=== PATIENT | female | born 1985 | race Caucasian/White ===

== ENCOUNTER 2017-11-07 22:26 | Emergency (ER) | END 2017-11-08 03:10 | disposition home or self-care (01) ==

== ENCOUNTER 2018-04-19 10:16 | Emergency (ER) | payer BC ==
[~2018-04-19] VITALS: Ht 170.2 cm; Wt 76.4 kg
[~2018-04-19 10:16] MED LIST: ACET1TAB40 PO; HYDR-4011 PO; NAPR-985 PO; PANT40TA3 PO
[2018-04-19 10:39] VITALS: Ht 170.2 cm; Wt 76.4 kg
--- NOTE | 2018-04-19 14:11 | ERD ---
ER Documentation Chief Complaint Chief Complaint haley robledo started yesterday HPI 32-year-old from presents for chest pain times 1 day. Patient also states she has associated headache. She took Motrin with relief of the chest wall pain and headache. She states that the pain is substernal, lasting 10 minutes at a time, intermittent, pressure-like sensation, rated 6 out of 10. There is no pain radiation. Denies diaphoresis she states that the pain is worse with eating. No prior similar symptoms. Denies fevers, cough. Denies nausea, vomiting, diarrhea. No shortness breath noted. Headache is noted to be similar to what she had in the past. ROS All systems reviewed and are negative except as per history of present illness. Medications Home Meds Active Scripts Naproxen* (Naprosyn*) 500 Mg Tablet, 500 MG PO BID PRN for PAIN AND/OR INFLAMMATION, #30 TAB Prov:CINTHYA NARANJO PA-C 11/08/17 Hydrocodone/Acetaminophen (Coats 5-325 Tablet) 1 Each Tablet, 1 TAB PO Q6H PRN for PAIN, #7 TAB Prov:CINTHYA NARANJO PA-C 11/08/17 Pantoprazole* (Protonix*) 40 Mg Tablet.dr, 40 MG PO DAILY, #20 TAB Prov:ASTRID LIRIANO MD 07/30/15 Acetaminophen-Codeine* (Acetaminophen-Cod #3*) 300-30 Mg Tab, 1 TAB PO Q4H PRN f or PAIN, #15 TAB Prov:ASTRID LIRIANO MD 07/30/15 Allergies Allergies: Coded Allergies: No Known Drug Allergies (Verified Allergy, Mild, 11/07/17) PMhx/Soc History of Surgery: Yes (C section X3 and appendectomy) Anesthesia Reaction: No Hx Neurological Disorder: No Hx Respiratory Disorders: No Hx Cardiac Disorders: No Hx Psychiatric Problems: No Hx Miscellaneous Medical Probl: No Hx Alcohol Use: Yes (social) Hx Substance Use: No Hx Tobacco Use: No Physical Exam Vitals Vital Signs Date Temp Pulse Resp B/P (MAP) Pulse Ox O2 O2 Flow FiO2 Time Delivery Rate 04/19/18 97.7 78 18 146/84 100 10:39 (104) Physical Exam Const: No acute distress Head: Atraumatic Eyes: Normal Conjunctiva ENT: Normal External Ears, Nose and Mouth. Neck: Full range of motion. No meningismus. Resp: Clear to auscultation bilaterally Cardio: Regular rate and rhythm, no murmurs, there is chest wall tenderness to palpation over the substernal area Abd: Soft, non tender, non distended. Normal bowel sounds Skin: No petechiae or rashes Back: No midline or flank tenderness Ext: No cyanosis, or edema Neur: Awake and alert Psych: Normal Mood and Affect Procedures/MDM Medical Decision Making: Differential diagnosis includes but not limited to chest pain secondary to musculoskeletal origin, ACS, pneumonia, PE Patient appeared well on physical exam. Given young age and lack of risk factors is low suspicion for ACS Lungs were clear there is no history of fever. There is low suspicion for pneumonia Chest x-ray was unremarkable EKG: Rate/Rhythm: Normal Sinus Rhythm QRS, ST, T-waves: No changes consistent w/ acute ischemia Impression: No evidence of ischemia or arrhythmia There is tenderness to palpation of the chest wall. Likely the patient has a musculoskeletal chest pain. Patient advised to continue with Advil at home if her pain continues. Advised to follow with her primary care physician for possible referral to cardiology if chest pain continues. Patient advised to follow up with PCP in 1-2 days. Patient advised to return to ED for new or worsening symptoms. Patient stable on discharge from the ED. Disclaimer: Inadvertent spelling and grammatical errors are likely due to EHR/dictation software use and do not reflect on the overall quality of patient care. Also, please note that the electronic time recorded on this note does not necessarily reflect the actual time of the patient encounter. Departure Diagnosis: Primary Impression: Chest wall pain Condition: Fair Patient Instructions: Chest Wall Strain Referrals: [facility] YOU HAVE RECEIVED A MEDICAL SCREENING EXAM AND THE RESULTS INDICATE THAT YOU DO NOT HAVE A CONDITION THAT REQUIRES URGENT TREATMENT IN THE EMERGENCY DEPARTMENT. FURTHER EVALUATION AND TREATMENT OF YOUR CONDITION CAN WAIT UNTIL YOU ARE SEEN IN YOUR DOCTORS OFFICE WITHIN THE NEXT 1-2 DAYS. IT IS YOUR RESPONSIBILITY TO MAKE AN APPOINTMENT FOR FOLOW-UP CARE. IF YOU HAVE A PRIMARY DOCTOR --you should call your primary doctor and schedule an appointment IF YOU DO NOT HAVE A PRIMARY DOCTOR YOU CAN CALL OUR PHYSICIAN REFERRAL HOTLINE AT IF YOU CAN NOT AFFORD TO SEE A PHYSICIAN YOU CAN CHOSE FROM THE FOLLOWING [facility] [address] [facility] [address] [facility] [facility] [address] [facility] [address] [facility] [address]. [facility] [address] Additional Instructions: Call your primary care doctor TOMORROW for an appointment during the next 1-2 days.See the doctor sooner or return here if your condition worsens before your appointment time. SHYAM OBRIEN DO Apr 19, 2018 14:11
[2018-04-19 14:22] VITALS: BP 127/91; PULSE 79; RESP 18
== END 2018-04-19 14:24 | disposition home or self-care (01) ==
LOC: FTE 10:16
DX: R07.89 Other chest pain (principal)
CPT/HCPCS: 71046; 93005